=== PATIENT | female | born 1955 | race Caucasian/White ===

== ENCOUNTER → 2017-12-31 11:47 | Outpatient (CLI) | payer OTHER, SELFPAY ==
--- NOTE | 2017-12-31 | DI.MG.S_ITS ---
BILATERAL DIGITAL SCREENING MAMMOGRAM 3D/2D WITH CAD: 12/31/2017 CLINICAL: Routine screening. Comparison is made to exams dated: 10/27/2016 mammogram, 10/23/2015 mammogram, and 08/14/2014 mammogram - [facility]. The tissue of both breasts is heterogeneously dense. This may lower the sensitivity of mammography. Current study was also evaluated with a Computer Aided Detection (CAD) system. No significant masses, calcifications, or other findings are seen in either breast. There has been no significant interval change. IMPRESSION: NEGATIVE There is no mammographic evidence of malignancy. A 1 year screening mammogram is recommended. This exam was interpreted at Station ID: [id number]. NOTE: For mammograms, a report in lay terms will be sent to the patient. Approximately 15% of breast malignancies will not be visualized mammographically. In the management of a palpable breast mass, a negative mammogram must not discourage biopsy of a clinically suspicious lesion. Electronically Signed By: Ankur hutton/lio:12/31/2017 16:04:19 letter sent: Normal Exam ACR BI-RADS Category 1: Negative 3341F
== END ==
PROVIDERS: Family Provider Family Medicine; PCP Family Medicine; Visit Provider Family Medicine
DX: Z12.31 Encounter for screening mammogram for malignant neoplasm of breast (principal)
CPT/HCPCS: 77063; 77067

== ENCOUNTER → 2019-02-20 13:13 | Outpatient (CLI) | payer OTHER, SELFPAY ==
--- NOTE | 2019-02-20 | DI.RAD.S_ITS ---
PROCEDURE: XR CHEST 2V INDICATIONS: SHORTNESS OF BREATH TECHNIQUE: 2 views of the chest were acquired. COMPARISON: [facility], , CHEST 2 VIEW, 02/15/2017, 15:54. FINDINGS: Surgical changes and devices: None. Lungs and pleura: Lungs are clear. No pleural effusions or pneumothorax. Mediastinum: Mediastinal contours are normal. Heart size is normal. Bones and chest wall: No suspicious bony abnormalities. Soft tissues appear unremarkable. Mild multilevel degenerative changes of the thoracic spine. IMPRESSION: No acute cardiopulmonary disease. Dictated by: Garth Wallis M.D. on 02/20/2019 at 15:41 Approved by: Garth Wallis M.D. on 02/20/2019 at 15:52
== END ==
PROVIDERS: PCP Family Medicine; Visit Provider Family Medicine
DX: R06.02 Shortness of breath (principal)
CPT/HCPCS: 71046

== ENCOUNTER → 2019-02-28 11:49 | Outpatient (CLI) | payer OTHER, SELFPAY ==
--- NOTE | 2019-02-28 | DI.MG.S_ITS ---
BILATERAL DIGITAL SCREENING MAMMOGRAM 3D/2D WITH CAD: 02/28/2019 CLINICAL: Routine screening. Comparison is made to exams dated: 12/31/2017 mammogram, 10/27/2016 mammogram, and 10/23/2015 mammogram - [facility]. The tissue of both breasts is heterogeneously dense. This may lower the sensitivity of mammography. Current study was also evaluated with a Computer Aided Detection (CAD) system. There are benign post operative findings in the left breast. No significant masses, calcifications, or other findings are seen in either breast. There has been no significant interval change. IMPRESSION: There is no mammographic evidence of malignancy. A 1 year screening mammogram is recommended. This exam was interpreted at Station ID: [id number]. NOTE: For mammograms, a report in lay terms will be sent to the patient. Approximately 15% of breast malignancies will not be visualized mammographically. In the management of a palpable breast mass, a negative mammogram must not discourage biopsy of a clinically suspicious lesion. Electronically Signed By: Josy ross/lio:02/28/2019 13:42:56 letter sent: Normal Exam ACR BI-RADS Category 2: Benign Finding(s) 3342F
== END ==
PROVIDERS: PCP Family Medicine; Visit Provider Family Medicine
DX: Z12.31 Encounter for screening mammogram for malignant neoplasm of breast (principal); Z78.0 Asymptomatic menopausal state; Z82.62 Family history of osteoporosis
CPT/HCPCS: 77063; 77067; 77080

== ENCOUNTER → 2020-01-19 16:28 | Outpatient (CLI) | payer OTHER, SELFPAY ==
--- NOTE | 2020-01-19 16:30 | DI.RAD.S_ITS ---
PROCEDURE: XR CLAVICLE LT INDICATIONS: LEFT CLAVICLE ENLARGEMENT TECHNIQUE: 2 views of the clavicle were acquired. COMPARISON: None. FINDINGS: Bones: No acute fracture or dislocation. There is moderate narrowing at the acromioclavicular joint. No suspicious bony lesions. Soft tissues: No suspicious soft tissue calcifications. IMPRESSION: Moderate acromioclavicular joint osteoarthritis. No suspicious bony lesions. Dictated by: Josy Maher M.D. on 01/19/2020 at 17:03 Approved by: Josy Maher M.D. on 01/19/2020 at 17:04
== END ==
PROVIDERS: PCP Family Medicine; Referring Provider Family Medicine; Visit Provider Family Medicine
DX: M89.312 Hypertrophy of bone, left shoulder (principal); M19.012 Primary osteoarthritis, left shoulder
CPT/HCPCS: 73000

== ENCOUNTER → 2021-02-19 16:55 | Outpatient (CLI) | payer MEDICARE, OTHER, SELFPAY ==
--- NOTE | 2021-02-19 16:59 | DI.MG.S_ITS ---
BILATERAL DIGITAL SCREENING MAMMOGRAM 3D/2D WITH CAD: 02/19/2021 CLINICAL: Routine screening. Comparison is made to exams dated: 02/28/2019 mammogram, 12/31/2017 mammogram, and 10/27/2016 mammogram - [facility]. The tissue of both breasts is heterogeneously dense. This may lower the sensitivity of mammography. Current study was also evaluated with a Computer Aided Detection (CAD) system. There are benign calcifications in both breasts. There also are benign post operative findings in the left breast. No significant masses, calcifications, or other findings are seen in either breast. There has been no significant interval change. IMPRESSION: BENIGN There is no mammographic evidence of malignancy. A 1 year screening mammogram is recommended. This exam was interpreted at Station ID: [id number]. NOTE: For mammograms, a report in lay terms will be sent to the patient. Approximately 15% of breast malignancies will not be visualized mammographically. In the management of a palpable breast mass, a negative mammogram must not discourage biopsy of a clinically suspicious lesion. Electronically Signed By: Zi Franco acr/penrad:02/19/2021 19:16:11 letter sent: Normal Exam ACR BI-RADS Category 2: Benign Finding(s) 3342F
== END ==
PROVIDERS: PCP Family Medicine; Referring Provider Family Medicine; Visit Provider Family Medicine
DX: Z12.31 Encounter for screening mammogram for malignant neoplasm of breast (principal)
CPT/HCPCS: 77063; 77067

== ENCOUNTER → 2021-03-07 10:48 | Outpatient (CLI) | payer MEDICARE, OTHER, SELFPAY ==
--- NOTE | 2021-03-07 | DI.MRI.S_ITS ---
PROCEDURE: MR HEAD/BRAIN WO/W CON INDICATIONS: Migraine, colloid cyst TECHNIQUE: Noncontrast axial T1 spin echo, axial T2 fast spin echo, sagittal and axial FLAIR, coronal T2 fast spin echo, axial gradient echo, axial diffusion and ADC through the brain. After the administration of contrast, axial and coronal T1 spin echo with fat saturation through the brain. COMPARISON: [facility], MR, BRAIN WITHOUT CONTRAST, 03/01/2015, 8:22. [facility], MR, BRAIN WITH AND WITHOUT CONTRAS, 09/07/2005, 16:39. [facility], MR, BRAIN WITH AND WITHOUT CONTRAS, 10/13/2007, 13:32. [facility], MR, BRAIN WITH AND WITHOUT CONTRAS, 02/05/2009, 11:27. FINDINGS: Image quality: Excellent. CSF spaces: Basal cisterns are patent. No extra-axial fluid collections. Ventricles are normal in size and shape. Brain: Along the left medial aspect of the cerebellum, just inferior to the 4th ventricle, there is an ovoid lesion that measures 9 x 5 mm in greatest axial dimension, which demonstrates increased signal on precontrast T1 weighted images, as on series 6, image 7. This is smaller in size than that which is seen in 2006. There is a similar lesion seen more medially and inferiorly, as on series 6, image 6 measuring 4 x 4 mm, which is unchanged. These lesions are not believed to enhance. No midline shift. No intracranial bleeds or masses. No abnormal intracranial enhancement. There is cerebral volume loss for age. There is periventricular white matter chronic small vessel ischemic change. The brainstem appears normal. Diffusion-weighted images demonstrate no acute ischemic insults. No chronic ischemic insults. Normal intravascular flow voids are present. Skull and face: Calvarial marrow is normal in signal. Orbits appear normal. Sinuses: Sinuses and mastoids appear clear. IMPRESSION: There are 2 nonenhancing lesions seen near the 4th ventricle, with the larger of these lesions clearly smaller than in 2006. These are considered to be benign. No imaging explanation found for the patient's presenting history of headache. No masses or abnormal enhancement can be seen. Dictated by: Ajit Bhakta M.D. on 03/07/2021 at 10:44 Approved by: Ajit Bhakta M.D. on 03/07/2021 at 10:53
== END ==
PROVIDERS: PCP Family Medicine; Referring Provider Family Medicine; Visit Provider Family Medicine
DX: G93.0 Cerebral cysts (principal); G43.909 Migraine, unspecified, not intractable, without status migrainosus
CPT/HCPCS: 70553

== ENCOUNTER → 2021-10-10 13:20 | Outpatient (CLI) | payer MEDICARE, OTHER, SELFPAY ==
--- NOTE | 2021-10-10 | DI.RAD.S_ITS ---
PROCEDURE: XR CHEST 2V INDICATIONS: CHRONIC COUGH TECHNIQUE: 2 views of the chest were acquired. COMPARISON: [facility], CR, XR CHEST 2V, 02/20/2019, 13:14. FINDINGS: Surgical changes and devices: None. Lungs and pleura: Lungs are clear. No pleural effusions or pneumothorax. Eventration of the hemidiaphragms. Mediastinum: Mediastinal contours are normal. Heart size is normal. Bones and chest wall: No suspicious bony abnormalities. Soft tissues appear unremarkable. IMPRESSION: No acute cardiopulmonary disease process. Dictated by: Summer Christianson MD, PhD on 10/10/2021 at 16:26 Approved by: Summer Christianson MD, PhD on 10/10/2021 at 16:27
== END ==
PROVIDERS: PCP Family Medicine; Referring Provider Family Medicine; Visit Provider Family Medicine
DX: R05.3 Chronic cough (principal)
CPT/HCPCS: 71046

== ENCOUNTER → 2022-02-27 15:14 | Outpatient (CLI) | payer MEDICARE, OTHER, SELFPAY ==
--- NOTE | 2022-02-27 15:15 | DI.MG.S_ITS ---
BILATERAL DIGITAL SCREENING MAMMOGRAM 3D/2D WITH CAD: 02/27/2022 CLINICAL: Routine screening. Comparison is made to exams dated: 02/19/2021 mammogram, 02/28/2019 mammogram, and 12/31/2017 mammogram - [facility]. Both breasts are heterogeneously dense, which may obscure small masses (category c / 51-75% glandular tissue). Current study was also evaluated with a Computer Aided Detection (CAD) system. There are benign calcifications in both breasts. There also are benign post operative findings in the left breast. No significant masses, calcifications, or other findings are seen in either breast. There has been no significant interval change. IMPRESSION: BENIGN There is no mammographic evidence of malignancy. A 1 year screening mammogram is recommended. Based on the Tyrer Cuzick model (a risk assessment model) the patient's lifetime risk is 11.0% and her 10 year risk is 5.6%. According to the ACR, ACS, and NCCN guidelines, an annual breast MRI exam along with mammogram is recommended if the patient's lifetime risk is 20% or greater. This exam was interpreted at Station ID: [id number]. NOTE: For mammograms, a report in lay terms will be sent to the patient. Approximately 15% of breast malignancies will not be visualized mammographically. In the management of a palpable breast mass, a negative mammogram must not discourage biopsy of a clinically suspicious lesion. Electronically Signed By: Eulalio Capellan M.D., jr/lio:03/02/2022 10:39:09 letter sent: Normal Exam ACR BI-RADS Category 2: Benign Finding(s) 3342F
== END ==
PROVIDERS: PCP Family Medicine; Referring Provider Family Medicine; Visit Provider Family Medicine
DX: Z12.31 Encounter for screening mammogram for malignant neoplasm of breast (principal)
CPT/HCPCS: 77063; 77067

== ENCOUNTER → 2022-11-27 13:30 | Outpatient (CLI) | payer MEDICARE, OTHER, SELFPAY ==
--- NOTE | 2022-11-27 | DI.RAD.S_ITS ---
1PROCEDURE: XR CHEST 2V INDICATIONS: chronic cough TECHNIQUE: 2 views of the chest were acquired. COMPARISON: [facility], CR, XR CHEST 2V, 10/10/2021, 13:36. [facility], CR, XR CHEST 2V, 02/20/2019, 13:14. FINDINGS: Surgical changes and devices: None. Lungs and pleura: No airspace consolidation or pleural effusion. Mediastinum: Mediastinal contours are normal. Heart size is normal. Bones and chest wall: No suspicious bony abnormalities. Soft tissues appear unremarkable. IMPRESSION: No acute radiographic abnormality. Dictated by: Eros Torres M.D. on 11/27/2022 at 14:51 Approved by: Eros Torres M.D. on 11/27/2022 at 14:52
== END ==
PROVIDERS: PCP Family Medicine; Referring Provider Family Medicine; Visit Provider Family Medicine
DX: R05.3 Chronic cough (principal)
CPT/HCPCS: 71046

== ENCOUNTER → 2022-12-28 09:25 | Outpatient (CLI) | payer MEDICARE, OTHER, SELFPAY ==
--- NOTE | 2022-12-28 09:28 | DI.CT.S_ITS ---
PROCEDURE: CT CHEST W CON INDICATIONS: CHRONIC COUGH/DESIR TECHNIQUE: After the administration of intravenous contrast, 5 mm thick sections acquired from the pulmonary apices to the posterior costophrenic angles. 1 mm axial lung, 5 mm thick coronal and sagittal reformats and 7 mm axial MIP were acquired. For radiation dose reduction, the following was used: automated exposure control, adjustment of mA and/or kV according to patient size. COMPARISON: None. FINDINGS: Image quality: Excellent. Lungs and pleura: Central airways are patent. Peripheral airways demonstrate mild diffuse bronchial wall thickening without bronchiectasis or airway occlusion. Trace atelectatic changes peripherally in the right middle lobe and lower lingula. Minor subpleural tree-in-bud nodularity seen laterally in the left upper lobe at a mid lung level. There is biapical pleural plaquing. A 7 mm nodules present in the medial right lung apex. Pleural and subpleural calcified nodules occasionally in the both lungs. No dense consolidations, ground-glass opacities, or pleural effusions. Mediastinum: Heart size is normal. No pericardial effusion. No mediastinal or hilar adenopathy by size criteria. Nonenlarged calcified right hilar nodule. Thoracic aorta and central pulmonary arteries are normal in size. Esophagus is normal in caliber. Tiny hiatal hernia. Bones and chest wall: No suspicious bony lesions. No vertebral body compression fractures. No axillary or supraclavicular adenopathy by size criteria. Thyroid gland has a normal CT appearance . Abdomen: 1.3 cm left lobe hepatic cyst. Visualized upper abdominal solid organs appear otherwise normal. Upper abdominal bowel loops are normal in caliber. IMPRESSION: 1. Mild diffuse bilateral bronchial wall thickening suggesting acute or chronic bronchitis, reactive airways disease. There is no bronchiectasis. 2. Scattered calcified bilateral lung nodules consistent with granulomas. 3. 7 mm noncalcified right apical lung nodule. Follow-up in six months recommended. Dictated by: Marcy Ha M.D. on 12/28/2022 at 13:09 Approved by: Marcy Ha M.D. on 12/28/2022 at 13:18
[2022-12-28 09:53] LABS: Estimated Glomerular Filt Rate > 60 mL/min (>60)
== END ==
PROVIDERS: Radiology Diagnostic Radiology; PCP Family Medicine; Referring Provider Family Medicine; Visit Provider Family Medicine
DX: R05.3 Chronic cough (principal); R91.8 Other nonspecific abnormal finding of lung field; R06.09 Other forms of dyspnea; B34.9 Viral infection, unspecified
CPT/HCPCS: 36415; 71260; 82565; Q9967

== ENCOUNTER 2023-01-26 08:16 | Day surgery (SDC) | payer MEDICARE, OTHER, SELFPAY ==
[2023-01-26 08:25] VITALS: BP 113/68; PULSE 74; RESP 16; TEMP 36.5; O2SAT 96; BMI 25.4
[2023-01-26] MEDS: LACTATED RINGERS 1,000 ML 200 ML IV (08:44)
--- NOTE | 2023-01-26 09:32 | PM.HP.1 ---
History of Present Illness History of Present Illness Date Patient Seen: 01/26/23 Time Patient Seen: 09:32 Chief complaint: SD Narrative: 66-year-old woman here for diagnostic colonoscopy after recent rectal bleeding. Please refer to H&P 12/04/22 for further detail, no interval changes in health. [facility] Medical History Asthma Migraine Surgical History H/O breast biopsy H/O section Social History marital status: unmarried,single household members: none lives independently: Yes occupational status: previously employed Smoking Status: Never smoker alcohol intake: current substance use type: does not use Meds Home Medications and Allergies Home Medications Medication Instructions Recorded Confirmed Type cetirizine 10 mg tablet (Zyrtec) 10 mg PO DAILY PRN Allergy Symptoms 12/04/22 01/26/23 History citalopram 10 mg tablet (Celexa) 10 mg PO DAILY 12/04/22 01/26/23 History citalopram 20 mg tablet (Celexa) 20 mg PO DAILY 12/04/22 01/26/23 History magnesium oxide 400 mg (241.3 mg 400 mg PO DAILY 12/04/22 01/26/23 History magnesium) tablet (MagOx) multivitamin 1 tab PO DAILY 12/04/22 01/26/23 History sodium sul 1.479 gram-potas ch See Rx Instructions PO PER PKG DIR 12/04/22 01/26/23 Rx 0.188 gram-magnes sul 0.225 gram #24 tabs tablet (Sutab) propranolol 60 mg capsule,24 60 mg PO DAILY 01/26/23 01/26/23 History hr,extended release Allergies Allergy/AdvReac Type Severity Reaction Status Date / Time No Known Drug Allergies Allergy Unknown Unverified 12/04/22 10:23 [NO KNOWN DRUG ALLERGIES] Exam Vital Signs (past 8 hours): - 01/26/23 08:25 Temperature 97.7 F Pulse Rate 74 Respiratory Rate 16 Blood Pressure 113/68 Pulse Oximetry 96 Oxygen Delivery Method Room Air Oxygen Delivery Method Room Air Narrative Exam Narrative: General adult woman alert oriented no acute distress Abdomen soft nontender nondistended Assessment & Plan Assessment and plan (1) Rectal bleeding: Status: Acute Assessment & Plan narrative: 67-year-old woman with intermittent rectal bleeding here for diagnostic colonoscopy. Technical details were discussed. Risks, benefits, alternatives explained. Risks including but not limited to myocardial infarction, aspiration, bleeding, pain, missed lesion, incomplete examination, need for further radiographic studies, colonic perforation, and need for major abdominal surgery were discussed. All questions were answered to their satisfaction, and they are in agreement with this plan.
[2023-01-26 10:04] VITALS: BP 87/54; PULSE 70; RESP 16; TEMP 36.2; O2SAT 98
[2023-01-26 10:09] VITALS: BP 93/58; PULSE 70; RESP 21; O2SAT 98
--- NOTE | 2023-01-26 10:12 | PM.OP.COLON ---
Operative Date/Time/Diagnoses Date of procedure: 01/26/23 Time of procedure: 10:13 Pre-op diagnosis: Rectal bleeding Post-op diagnosis: other (Internal hemorrhoid) Procedure & Clinicians Study performed: Colonoscopy Same procedure as scheduled: Yes Indications: 67-year-old woman with recent rectal bleeding here for diagnostic colonoscopy Surgeon: Moses Tilley Procedure Notes Procedure in detail: The history and physical was performed/updated and the patient is ASA class is 2. The procedure was discussed in detail with the patient. Potential risks complications including infection, bleeding, missed diagnosis, perforation, need for surgery, and were explained. Their questions were answered and informed consent was obtained. Patient was brought to the procedure room and placed standard monitoring equipment. The patient's vital signs were monitored continuously throughout the entire procedure. Prior to starting time-out was performed. The patient was placed in the left lateral recumbent position. Procedural sedation was administered by anesthesia. Examination began with a thorough inspection of the perianal area there was no evidence of fissures, fistulae, external hemorrhoids or cutaneous malignancy. The colonoscopy scope was then placed into the anal canal and was advanced to the cecum, which was identified by the ileocecal valve, the appendiceal orifice and the confluence of the taenia. The scope was then slowly withdrawn examining colon thoroughly in all directions, irrigating it of any residual stool. No masses or polyps Rectal-grade 1 internal hemorrhoids no active bleeding The patient tolerated the procedure well. They will be discharged once criteria are met. The prep was of good/excellent quality. The withdrawl time was 6 minutes. Specimen(s): none sent Impression: Internal hemorrhoids Post-procedure Recommendations: Colonoscopy in 10 years and High fiber diet Disposition: same day surgery
[2023-01-26 10:15] VITALS: BP 94/56; PULSE 67; RESP 25; O2SAT 99
[2023-01-26 10:21] VITALS: BP 90/56; PULSE 65; RESP 24; O2SAT 99
== END 2023-01-26 10:30 | disposition home or self-care (01) ==
PROVIDERS: PCP Family Medicine; Referring Provider Surgery; Visit Provider Surgery
PROC: 0DJD8ZZ Inspection of Lower Intestinal Tract, Via Natural or Artificial Opening Endoscopic (ICD-10-PCS; CPT 45378; principal; 2023-01-26 09:30)
DX: K64.0 First degree hemorrhoids (principal)
CPT/HCPCS: 45378; J2704

== ENCOUNTER → 2023-02-09 12:37 | Outpatient (CLI) | payer MEDICARE, OTHER, SELFPAY | PROVIDERS: PCP Family Medicine; Referring Provider Internal Medicine Critical Care Medicine; Visit Provider Internal Medicine Critical Care Medicine | DX: J98.01 Acute bronchospasm (principal); R91.8 Other nonspecific abnormal finding of lung field | CPT/HCPCS: 94060; 94726; 94729; 99214 ==

== ENCOUNTER → 2023-03-17 11:30 | Outpatient (CLI) | payer MEDICARE, OTHER, SELFPAY ==
--- NOTE | 2023-03-17 | DI.MG.S_ITS ---
BILATERAL DIGITAL SCREENING MAMMOGRAM 3D/2D WITH CAD: 03/17/2023 CLINICAL: Routine screening. Comparison is made to exams dated: 02/27/2022 mammogram, 02/19/2021 mammogram, 02/28/2019 mammogram, and 12/31/2017 mammogram - [facility]. Both breasts are heterogeneously dense, which may obscure small masses (category c / 51-75% glandular tissue). Current study was also evaluated with a Computer Aided Detection (CAD) system. There are benign diffuse calcifications in both breasts. There also are benign post operative findings in both breasts. No significant masses, calcifications, or other findings are seen in either breast. There has been no significant interval change. IMPRESSION: BENIGN There is no mammographic evidence of malignancy. A 1 year screening mammogram is recommended. Based on the Tyrer Cuzick model (a risk assessment model) the patient's lifetime risk is 10.4% and her 10 year risk is 5.5%. According to the ACR, ACS, and NCCN guidelines, an annual breast MRI exam along with mammogram is recommended if the patient's lifetime risk is 20% or greater. This exam was interpreted at Station ID: [id number]. NOTE: For mammograms, a report in lay terms will be sent to the patient. Approximately 15% of breast malignancies will not be visualized mammographically. In the management of a palpable breast mass, a negative mammogram must not discourage biopsy of a clinically suspicious lesion. Electronically Signed By: Eliel kohli/lio:03/17/2023 13:44:34 letter sent: Normal Exam ACR BI-RADS Category 2: Benign Finding(s) 3342F
== END ==
PROVIDERS: PCP Family Medicine; Referring Provider Family Medicine; Visit Provider Family Medicine
DX: Z12.31 Encounter for screening mammogram for malignant neoplasm of breast (principal)
CPT/HCPCS: 77063; 77067

== ENCOUNTER 2023-03-21 19:59 | Emergency (ER) | payer MEDICARE, OTHER, SELFPAY ==
[2023-03-21] VITALS (13 sets, daily range): BP systolic 108–140; BP diastolic 53–87; PULSE 102–120; RESP 12–26; TEMP 37.1; O2SAT 92–98; BMI 25.3
--- NOTE | 2023-03-21 20:16 | ED_ITS ---
HPI - General Adult General Chief complaint: Upper Respiratory Symptoms Stated complaint: sinus infection/trouble breathing x7 days Time Seen by Provider: 03/21/23 20:16 Source: patient Mode of arrival: Ambulatory History of Present Illness HPI narrative: 67-year-old woman with a history of asthma and recently diagnosed sinusitis presents with complaints of being sick for the last week. She began having a sore throat 8 days ago than short of breath with a cough. Progressing to hoarseness increasing dyspnea, tachycardia, fevers and myalgias. Symptoms were getting worse and she saw her first aid instructor on March 19 who thought that this could be sinusitis recommended saline washes and if symptoms were worsening to start Augmentin. She has been regularly using a Netti pot and not finding that she is getting much nasal debris out. She does feel that she has sputum but is unable to cough that out. As symptoms were worsening she did start the Augmentin with a single dose taken this morning. She is continued to worsen over the course of the day and comes in for further evaluation. She does not report abdominal pain, vomiting or diarrhea. No orthopnea or lower extremity edema. Related Data Home Medications Medication Instructions Recorded Confirmed cetirizine 10 mg tablet (Zyrtec) 10 mg PO DAILY PRN Allergy Symptoms 12/04/22 03/19/23 citalopram 10 mg tablet (Celexa) 10 mg PO DAILY 12/04/22 03/19/23 citalopram 20 mg tablet (Celexa) 20 mg PO DAILY 12/04/22 03/19/23 magnesium oxide 400 mg (241.3 mg 400 mg PO DAILY 12/04/22 03/19/23 magnesium) tablet (MagOx) multivitamin 1 tab PO DAILY 12/04/22 03/19/23 propranolol 60 mg capsule,24 60 mg PO DAILY 01/26/23 03/19/23 hr,extended release albuterol sulfate 90 mcg/actuation 2 inh inhalation Q4-6H PRN 02/09/23 03/19/23 breath activated powder inhaler,sensor Previous Rx's Medication Instructions Recorded inhalational spacing device #1 ea 02/09/23 (Aerochamber MV spacer) fluticasone 250 mcg-salmeterol 50 1 inh inhalation BID #1 ea 02/23/23 mcg/dose blistr powdr for inhalation (Advair Diskus) amoxicillin 500 mg-potassium 1 tab PO BID #14 tabs 03/19/23 clavulanate 125 mg tablet (Augmentin) azithromycin 250 mg tablet 250 mg PO DAILY 4 days #4 tabs 03/21/23 prednisone 20 mg tablet 20 mg PO DAILY #5 tabs 03/21/23 Allergies Allergy/AdvReac Type Severity Reaction Status Date / Time No Known Drug Allergies Allergy Unknown Unverified 03/19/23 14:45 [NO KNOWN DRUG ALLERGIES] Review of Systems Review of Systems Narrative: Pertinent positive and negative findings as per HPI Patient History Medical History Migraine Asthma Surgical History H/O breast biopsy H/O section Social History marital status: unmarried,single household members: none lives independently: Yes occupational status: previously employed Smoking Status: Never smoker alcohol intake: current substance use type: does not use Smoking Status: Never smoker alcohol intake frequency: a few times a month Substance Use Type: does not use Exam Initial Vital Signs Initial Vital Signs: Vital Signs Temperature 98.8 F 03/21/23 20:02 Pulse Rate 120 H 03/21/23 20:02 Respiratory Rate 16 03/21/23 20:02 Blood Pressure 140/72 03/21/23 20:02 Pulse Oximetry 94 03/21/23 20:02 Oxygen Delivery Method Room Air 03/21/23 20:02 General: Ill-appearing but not toxic. Able to give a complete and coherent history. Well-nourished well-developed HEENT: Hoarse, Moist mucous membranes, normal sclera with reactive pupils, Neck: No JVD, supple Respiratory: Lungs with rhonchi through upper and lower lobes on the right side and scattered wheeze in all lung chappell Cardiac: Tachycardic, regular no murmurs no bruits Abdomen: Soft, nontender, good bowel tones, no flank pain Skin: Warm and dry, no rashes Neurologic: Grossly neurologically intact with no obvious asymmetries or abnormalities Extremities: No trauma, well perfused Psych: Cooperative, appropriate insight and affect Course Orders Ordered: ED Orders 03/21/23 20:30 XR chest 1V Stat EKG-12 Lead Stat 03/21/23 20:47 Complete Blood Count AUTO DIFF Stat Comprehensive Metabolic Panel Stat D Dimer Stat Lactate (Lactic Acid) Stat Magnesium Stat NT-proBNP (BNP-Adult 18+) Stat Procalcitonin Stat Respiratory Panel (Film Array) Stat Troponin I Stat 03/21/23 20:50 Blood Culture Stat Discontinued Medications Acetaminophen (Acetaminophen 325 Mg Tablet) 325 mg PO NOW ONE Stop: 03/21/23 21:43 Last Admin: 03/21/23 21:56 Dose: 325 mg Documented By: MARICHUY Albuterol (Albuterol 2.5 Mg/3 Ml Neb (Adult)) 2.5 mg INH NOW ONE Stop: 03/21/23 20:30 Last Admin: 03/21/23 20:45 Dose: 2.5 mg Documented By: SANTOS Sodium Chloride (Normal Saline 0.9%) 1,000 mls @ 1,000 mls/hr IV BOLUS ONE Stop: 03/21/23 21:28 Last Infusion: 03/21/23 21:44 Dose: Infused Documented By: Admin: 03/21/23 20:44 Dose: 1,000 mls/hr Documented By: JOSÉ Ceftriaxone Sodium 2,000 mg/ (Sodium Chloride) 100 mls @ 200 mls/hr IV NOW ONE Stop: 03/21/23 20:32 Last Infusion: 03/21/23 21:24 Dose: Infused Documented By: Admin: 03/21/23 20:54 Dose: 200 mls/hr Documented By: MARICHUY Azithromycin 500 mg/ Dextrose 250 mls @ 250 mls/hr IV NOW ONE Stop: 03/21/23 20:32 Last Admin: 03/21/23 21:42 Dose: 250 mls/hr Documented By: MARICHUY Ibuprofen (Ibuprofen 400 Mg Tablet) 400 mg PO NOW ONE Stop: 03/21/23 21:43 Last Admin: 03/21/23 21:57 Dose: 400 mg Documented By: MARICHUY Vital Signs Vital signs: Vital Signs - 8 hr 03/21/23 20:02 03/21/23 20:27 03/21/23 20:30 Temperature 98.8 F Pulse Rate 120 H 109 H Respiratory Rate 16 26 H Blood Pressure 140/72 138/87 Pulse Oximetry 94 Oxygen Delivery Method Room Air 03/21/23 20:30 03/21/23 20:46 03/21/23 21:00 Temperature Pulse Rate 111 H 102 H 119 H Respiratory Rate 22 18 24 Blood Pressure Pulse Oximetry 97 95 98 Oxygen Delivery Method Room Air 03/21/23 21:30 03/21/23 21:37 03/21/23 21:37 Temperature Pulse Rate 113 H 117 H Respiratory Rate 26 H 20 Blood Pressure 126/57 L Pulse Oximetry 94 93 Oxygen Delivery Method 03/21/23 22:00 03/21/23 22:00 Temperature Pulse Rate 117 H Respiratory Rate 22 Blood Pressure 119/55 L Pulse Oximetry 94 Oxygen Delivery Method Medical Decision Making Lab Data 03/21/23 20:47 03/21/23 20:47 Labs: Lab Results 03/21/23 Range/Units 20:47 WBC 10.1 (4.5-11.0) X10^3/uL RBC 4.11 (4.0-5.2) X10^6/uL Hgb 12.2 (12.0-16.0) g/dL Hct 36.3 (36-46) % MCV 88.5 (80-100) fL MCH 29.7 (26-34) PG MCHC 33.6 (30-36) % RDW 14.0 (11.6-14.8) % Plt Count 272 (150-400) X10^3/uL Neut % (Auto) 87.2 H (50-75) % Lymph % (Auto) 6.3 L (25-40) % [place] % (Auto) 5.9 (3-14) % Eos % (Auto) 0.5 L (2-4) % Baso % (Auto) 0.1 (0-2) % Neut # (Auto) 8800 H (6522-7455) /uL Lymph # (Auto) 600 L (6482-9476) /uL [place] # (Auto) 600 (0-900) /uL Eos # (Auto) 0 (0-450) /uL Baso # (Auto) 0 (0-100) /uL D-Dimer 609 H (<500) ng/ml Sodium 134 L (137-145) mmol/L Potassium 4.3 (3.4-5.1) mmol/L Chloride 99 (98-107) mmol/L Carbon Dioxide 26 (22-32) mmol/L BUN 8 (7-17) mg/dL Creatinine 0.93 (0.52-1.04) mg/dL Estimated GFR > 60 (>60) mL/min BUN/Creatinine Ratio 8.6 (6-22) Glucose 123 H (80-110) mg/dL Lactate 1.2 (0.7-2.1) mmol/L Calcium 9.4 (8.4-10.2) mg/dL Magnesium 1.9 (1.6-2.3) mg/dL Total Bilirubin 0.5 (0.2-1.3) mg/dL AST 53 H (14-36) IU/L ALT 69 H (<35) IU/L Alkaline Phosphatase 97 (38-126) U/L Troponin I < 0.012 (0.01-0.034) ng/mL NT-Pro-B Natriuret Pep 256 H (<125) pg/mL Total Protein 7.7 (6.3-8.2) g/dL Albumin 4.2 (3.5-5.0) g/dL Globulin 3.5 (1.7-4.1) g/dL Albumin/Globulin Ratio 1.2 (1.0-2.8) Procalcitonin 0.28 (<0.5) ng/mL Chlamy pneumoniae PCR Not detected (Not Detect) Adenovirus (PCR) Not detected (Not Detect) B.parapertussis DNA PCR Not detected (Not Detecte) Coronavirus OC43 (PCR) Not detected (Not Detect) Coronavirus HKU1 (PCR) Not detected (Not Detect) Coronavirus 229E (PCR) Not detected (Not Detect) SARS-CoV-2 (PCR) Not detected (Not Detecte) Coronavirus NL63 (PCR) Not detected (Not Detect) Human Metapneumovir PCR Not detected (Not Detect) Influenza Type A (PCR) Not detected (Not Detect) Influenza Type B (PCR) Not detected (Not Detect) M. pneumoniae (PCR) Not detected (Not Detect) Parainfluenza 1 (PCR) Not detected (Not Detect) Parainfluenza 2 (PCR) Not detected (Not Detect) Parainfluenza 3 (PCR) Not detected (Not Detect) Parainfluenza 4 (PCR) Not detected (Not Detect) RSV (PCR) Not detected (Not Detect) Entero/Rhino (PCR) Detected (Not Detect) MDM Narrative Medical decision making narrative: CC: Fever, myalgias, cough symptoms worsening over the last week Complicating co-morbidities: Asthma Data collected from: patient, Medical records reviewed: Pulmonary notes from March 19 with diagnosis of sinusitis, recommendation for sinus rinses and his symptoms not improving then starting Augmentin. Moderate persistent asthma continue with [place] Differential considered: Right-sided pneumonia, acute asthma exacerbation, viral syndrome, sinusitis, sepsis Exam documented above, pertinent findings include: She is hoarse and does have symptoms of viral upper respiratory infection however with symptoms getting significantly worse and rhonchi appreciated through entire right lung chappell fever and significant tachycardia I am concerned that she is developing a post viral pneumonia Lab Test results independently reviewed as above. Pertinent findings: CBC has no significant leukocytosis with a white count at 10.1 however there is moderate left shift with 87.2% neutrophils. No anemia Chemistries show minimally elevated AST and ALT at 53 and 69 comparison is from 2017. Remainder chemistries are unremarkable BNP is minimally elevated at 256 Troponin is undetectable Procalcitonin is not elevated, currently at 0.28 Respiratory panel indicates entero rhinovirus Lactic acid is 1.2 Independently reviewed EKG sinus tachycardia at a rate of 108 with normal intervals, normal axis and no acute ischemic changes Imaging studies independently reviewed: Chest x-ray shows bilateral interstitial pulmonary opacities possible viral or atypical infection. Concerned with a small infiltrate appreciated on the right which clinically fits with the increased rhonchi Treatments: Albuterol treatment, a L of fluid, ceftriaxone and azithromycin parenterally, parenteral Solu-Medrol oral ibuprofen and Tylenol to help with sinus pressure headache Re-evaluations: 10pm patient is re-evaluated. She remains slightly tachycardic she does have a frontal headache that she feels may be a migraine. The fluids have definitely helped with energy overall. Reviewed findings with her consistent with rhino virus which likely caused the loss of voice and all of her symptoms over the 1st week as well as a developing bacterial right-sided pneumonia. As she has already started Augmentin I think this is a reasonable antibiotic to continue I am going to add to this a course of azithromycin to cover atypical pneumonias as well. CURB-65 Score for Pneumonia Severity RESULT SUMMARY: 1 points Low risk group: 2.7% 30-day mortality. Consider outpatient treatment. Discussion: 67-year-old woman testing positive for entero rhinovirus which likely explains her symptoms from a week ago, with increased fevers clearly worsening she is developing a right-sided post viral bacterial pneumonia. She is already been started on Augmentin and will have her continue this and will add azithromycin to cover atypicals. For the wheezing will also have her complete 5 days of steroids. She is clinically looking and feeling much improved at this point. There is no evidence of sepsis, impending respiratory failure or reason for further evaluation or hospitalization. Will suggest that she continue with the sinus irrigation for the frontal sinus pain and pressure. Questions are answered and she is safe for discharge home Discharge Plan Departure Patient Disposition: Home Clinical Impression: Bacterial pneumonia, Rhinovirus infection Instructions: DI for Pneumonia -- Adult Activity Restrictions/Additional Instructions: Thank you for coming in today I do think that your symptoms started out as a viral upper respiratory infection caused by rhino virus. As you have worsened it does appear that you have developed a bacterial pneumonia in the right side of your lungs. You responded nicely to fluids and antibiotics as well as a nebulizer treatment in the emergency department. At this time there is no sign of sepsis, impending respiratory failure or alternate explanation that would require hospitalization or further imaging today I do want you to complete the course of Augmentin that you have already started and to this I am going to add for additional days of azithromycin(you had the 1st dose IV in the emergency department). I am also going to give you a short course of oral steroids to help with the wheezing. Prescriptions have been electronically transmitted to [facility] in [place] I would recommend that you contact your primary care physician for follow-up with in 2-3 days to make sure that you are still improving. If you find that you are getting worse or develop any new symptoms, please feel free to return to the emergency department for further evaluation. Prescriptions: New prednisone 20 mg tablet 20 mg PO DAILY Qty: 5 0RF azithromycin 250 mg tablet 250 mg PO DAILY 4 Days Qty: 4 0RF Rx Instructions: start on 03/22. First dose given in ER No Action citalopram [Celexa] 10 mg tablet 10 mg PO DAILY citalopram [Celexa] 20 mg tablet 20 mg PO DAILY Rx Instructions: Takes with 10mg tablet daily magnesium oxide [MagOx] 400 mg (241.3 mg magnesium) tablet 400 mg PO DAILY cetirizine [Zyrtec] 10 mg tablet 10 mg PO DAILY PRN (Reason: Allergy Symptoms) multivitamin Tablet 1 tab PO DAILY propranolol 60 mg Capsule,Extended Release 24 Hr 60 mg PO DAILY albuterol sulfate 90 mcg/actuation aero powdr breath act w/sensor 2 inh inhalation Q4-6H PRN (DME) Aerochamber MV Spacer See Rx Instructions .Route Qty: 1 0RF Rx Instructions: As directed fluticasone propion-salmeterol [Advair Diskus] 250-50 mcg/dose blister with device 1 inh inhalation BID Qty: 1 3RF amoxicillin-pot clavulanate [Augmentin] 500-125 mg tablet 1 tab PO BID Qty: 14 0RF Referrals: Deann Castro MD [Primary Care Provider] - Stand Alone Forms: Patient Portal/API
--- NOTE | 2023-03-21 20:30 | DI.RAD.S_ITS ---
PROCEDURE: XR CHEST 1V INDICATIONS: Cough, sepsis. TECHNIQUE: One view of the chest was acquired. COMPARISON: [facility], CR, XR CHEST 2V, 11/27/2022, 13:37. [facility], CR, XR CHEST 2V, 10/10/2021, 13:36. FINDINGS: Surgical changes and devices: None. Lungs and pleura: Bilateral interstitial opacities. No pleural effusion or pneumothorax. Mediastinum: Mediastinal contours appear normal. Heart size is normal. Bones and chest wall: No suspicious bony lesions. Overlying soft tissues appear unremarkable. IMPRESSION: Bilateral interstitial pulmonary opacities could represent sequela of viral or atypical infection. Interstitial edema can appear similarly. Dictated by: Shahid Rodriguez M.D. on 03/21/2023 at 20:52 Approved by: Shahid Rodriguez M.D. on 03/21/2023 at 20:53
[2023-03-21] MEDS: SODIUM CHLORIDE 0.9% 1,000 ML 1000 ML IV (20:44)
[2023-03-21] MEDS: ALBUTEROL 2.5 MG/3 ML NEB (ADULT) INH (20:45)
[2023-03-21] MEDS: cefTRIAXone 2,000 MG in SODIUM CHLORIDE 0.9% 100 ML 200 MG IV (20:54)
[2023-03-21 20:58] LABS: Add Manual Diff / Slide Review NO; Basophils Absolute Auto 0 /uL (0-100); Basophils Percent Auto 0.1 % (0-2); Eosinophils Absolute Auto 0 /uL (0-450); Eosinophils Percent Auto 0.5 % (2-4); Hematocrit 36.3 % (36-46); Hemoglobin 12.2 g/dL (12.0-16.0); Lymphocytes Absolute Auto 600 /uL (1100-4500); Lymphocytes Percent Auto 6.3 % (25-40); Mean Corpuscular HGB Conc 33.6 % (30-36); Mean Corpuscular Hemoglobin 29.7 PG (26-34); Mean Corpuscular Volume 88.5 fL (80-100); Monocytes Absolute Auto 600 /uL (0-900); Monocytes Percent Auto 5.9 % (3-14); Neutrophils Absolute Auto 8800 /uL (1500-7000); Neutrophils Percent Auto 87.2 % (50-75); Platelet Count 272 X10^3/uL (150-400); Red Blood Cell Count 4.11 X10^6/uL (4.0-5.2); White Blood Cell Count 10.1 X10^3/uL (4.5-11.0)
[2023-03-21 21:10] LABS: D Dimer 609 ng/ml (<500)
[2023-03-21 21:13] LABS: Lactate (Lactic Acid) 1.2 mmol/L (0.7-2.1)
[2023-03-21 21:14] LABS: Alanine Aminotransferase 69 IU/L (<35); Albumin 4.2 g/dL (3.5-5.0); Albumin Globulin Ratio 1.2 (1.0-2.8); Alkaline Phosphatase 97 U/L (38-126); Aspartate Aminotransferase 53 IU/L (14-36); BUN Creatinine Ratio 8.6 (6-22); Bilirubin Total 0.5 mg/dL (0.2-1.3); Blood Urea Nitrogen 8 mg/dL (7-17); Calcium 9.4 mg/dL (8.4-10.2); Carbon Dioxide 26 mmol/L (22-32); Chloride 99 mmol/L (98-107); Estimated Glomerular Filt Rate > 60 mL/min (>60); Globulin 3.5 g/dL (1.7-4.1); Glucose 123 mg/dL (80-110); HEMOLYSIS 16 (0-50); Magnesium 1.9 mg/dL (1.6-2.3); Potassium 4.3 mmol/L (3.4-5.1); Sodium 134 mmol/L (137-145); Total Protein 7.7 g/dL (6.3-8.2)
[2023-03-21 21:26] LABS: NT-proBNP (BNP-Adult 18+) 256 pg/mL (<125); Troponin I < 0.012 ng/mL (0.01-0.034)
[2023-03-21 21:30] LABS: Procalcitonin 0.28 ng/mL (<0.5)
[2023-03-21] MEDS: AZITHROMYCIN 500 MG in DEXTROSE 5% IN WATER 250 ML 250 MG IV (21:42)
[2023-03-21 21:46] LABS: Adenovirus Not Detected (Not Detect); B. parapertussis Not Detected (Not Detecte); Bordetella pertussis Not Detected (Not Detect); Chlamydophila pneumoniae Not Detected (Not Detect); Coronavirus 229E Not Detected (Not Detect); Coronavirus HKU1 Not Detected (Not Detect); Coronavirus NL 63 Not Detected (Not Detect); Coronavirus OC43 Not Detected (Not Detect); Human Metapneumovirus Not Detected (Not Detect); Human Rhinovirus/Enterovirus Detected (Not Detect); Influenza A Not Detected (Not Detect); Influenza B Not Detected (Not Detect); Mycoplasma pneumoniae Not Detected (Not Detect); Parainfluenza Virus 1 Not Detected (Not Detect); Parainfluenza Virus 2 Not Detected (Not Detect); Parainfluenza Virus 3 Not Detected (Not Detect); Parainfluenza Virus 4 Not Detected (Not Detect); Respiratory Syncytial Virus Not Detected (Not Detect); SARS- CoV-2 Not Detected (Not Detecte)
[2023-03-21] MEDS: ACETAMINOPHEN 325 MG TABLET PO (21:56)
[2023-03-21] MEDS: IBUPROFEN 400 MG TABLET PO (21:57)
[2023-03-21 23:22] LABS: Appearance Urine UA CLEAR; Bilirubin Urine UA NEGATIVE (NEGATIVE); Color Urine UA YELLOW; Glucose Urine UA NEGATIVE (Negative); Ketones Urine UA TRACE (NEGATIVE); Leukocyte Esterase Urine UA NEGATIVE (NEGATIVE); Nitrite Urine UA NEGATIVE (Negative); Occult Blood Urine UA 1+ (Negative); Protein Urine UA NEGATIVE (Negative); Specific Gravity Urine UA <=1.005 (1.000-1.035); Urobilinogen Urine UA 0.2 E.U./dL (0.2)
[2023-03-21] MEDS: methylPREDNISolone 125 MG/2 ML VIAL IV (23:23)
[2023-03-21 23:37] LABS: Bacteria Urine Occasional (0-1); Culture Indicated Urine Cult Not Indicated; RBC Urine 0-1/HPF (0-5/HPF); Squamous Epithelial Cell Urine 0-1 /HPF (0-5/HPF); WBC Urine None Seen (0-5/HPF)
== END 2023-03-21 23:37 | disposition home or self-care (01) ==
PROVIDERS: Emergency Provider Emergency Medicine; PCP Family Medicine
DX: J18.9 Pneumonia, unspecified organism (principal); B34.8 Other viral infections of unspecified site; Z20.822 Contact with and (suspected) exposure to COVID-19; R03.1 Nonspecific low blood-pressure reading
CPT/HCPCS: 36415; 71045; 80053; 81001; 83605; 83735; 83880; 84145; 84484; 85025; 85379; 87040; 87633; 93005; 93010; 94640; 96365; 96367; 96375; 99284; J0696; J2930; J7613

== ENCOUNTER → 2023-09-27 15:30 | Outpatient (CLI) | payer MEDICARE, OTHER, SELFPAY ==
--- NOTE | 2023-09-27 15:34 | DI.CT.S_ITS ---
PROCEDURE: CT CHEST WO CON INDICATIONS: Solitary pulmonary nodule TECHNIQUE: Noncontrast 5 mm thick sections acquired from the pulmonary apices to the posterior costophrenic angles. 1 mm lung window, 5 mm thick coronal and sagittal and 7 mm axial MIP reformats were then acquired. For radiation dose reduction, the following was used: automated exposure control, adjustment of mA and/or kV according to patient size. COMPARISON: [facility], CT, CT CHEST W CON, 12/28/2022, 10:24. FINDINGS: Image quality: Diagnostic. Lower Neck: No enlarged lymph nodes. Thyroid: No thyroid nodules which require sonographic follow up, per consensus guidelines. Axillae: No enlarged lymph nodes. Chest Wall: Unremarkable. Bones: Unremarkable. Lungs and Pleura: No pneumothorax or pleural effusions. No acute consolidation. 6 mm noncalcified nodule at the right lung apex appears unchanged. Small area of tree-in-bud nodularity again seen in the lateral left upper lobe that has not significantly changed. Bilateral bronchial wall thickening does not appear significantly changed. Assault scattered bilateral pulmonary micro nodules. Heart: Heart size is normal. No pericardial effusion. Mild coronary artery calcifications. Thoracic Vessels: The aorta and pulmonary arteries demonstrate normal size. Mediastinum and [place]: No enlarged lymph nodes. Esophagus: No wall thickening. No hiatal hernia. Upper Abdomen: Stable lateral left hepatic lobe cyst. Visualized upper abdomen solid organs and bowel loops appear normal. IMPRESSION: 1. Right apex 6 mm nodule is stable to minimally decreased in size. No suspicious new pulmonary nodule. Consider follow-up CT in 12 months. 2. Otherwise stable exam. Approved by: Shahid Zheng M.D. on 09/27/2023 at 21:09
== END ==
PROVIDERS: PCP Family Medicine; Referring Provider Family Medicine; Visit Provider Family Medicine
DX: R91.1 Solitary pulmonary nodule (principal); I25.10 Atherosclerotic heart disease of native coronary artery without angina pectoris; K76.89 Other specified diseases of liver
CPT/HCPCS: 71250

== ENCOUNTER → 2023-12-15 08:30 | Outpatient (CLI) | payer MEDICARE, OTHER, SELFPAY ==
--- NOTE | 2023-12-15 | DI.NM.S_ITS ---
PROCEDURE: NM MICHELLE PERF SPECT REST & STR Rest and exercise myocardial perfusion SPECT with gated imaging and ejection fraction RADIOPHARMACEUTICAL: 26.9 mCi Tc-99m sestamibi IV at rest and 25.9 mCi Tc-99m sestamibi IV at peak exercise. A 2 day-protocol was performed. INDICATIONS: Dyspnea PQRS ATTESTATIONS: Measure 322 - Is this imaging test primarily performed on a low-risk surgery patient for preoperative evaluation within 30 days preceding their low-risk non-cardiac surgery? Low-risk surgery is defined as cardiac or myocardial infarction less than 1%, including (but not limited to) endoscopic procedures, superficial procedures, cataract surgery, and excisional breast surgery: Answer: No Measure 323 - Is this imaging test performed primarily for the monitoring of an asymptomatic patient who had percutaneous coronary intervention on the visit date or within 2 years of the visit date? Answer: No Measure 324 - Is this imaging test performed primarily for the initial detection and risk assessment on an asymptomatic, low coronary heart disease patient? Low CHD risk definition = clinicians should consider the maximum number of available patient factors used to estimate risk based on [place] (ATP III criteria), typically age, gender, diabetes, smoking status, and use of blood pressure medication, and integrate age appropriate estimates for missing elements, such as LDL or standard blood pressure. Answer: No TECHNIQUE: Radiopharmaceutical was injected at peak stress test, and also at rest. SPECT images were obtained. SPECT myocardial perfusion images were displayed in short axis, horizontal long axis, and vertical long axis views. Gated images were reviewed using [employer] software. COMPARISON: None. CARDIAC STRESS: A standard Roddy treadmill exercise tolerance test was performed by the patient under the supervision of an attending staff. The patient exercised for 9 minutes and 10 seconds; functional aerobic impairment (MK) is -48%. Hemodynamic data: There is normal blood pressure and heart rate response to exercise stress. Patient achieved 102% of maximum predicted heart rate at peak exercise. Symptoms: Patient denied chest pain during exercise. EKG: No diagnostic EKG changes of ischemia; no ectopy. FINDINGS: Raw data: There is good myocardial labeling by radiotracer. No significant motion artifacts. Mzde-ic-ecfdj ratio is 0.4 (normal is less than 0.38 for sestamibi tracer, and less than 0.50 for thallium tracer). Left ventricle function: Gated images demonstrate normal left ventricle wall thickening. No segmental wall motion abnormality. No transient ischemic dilation; TID is 0.82 (normal less than 1.3). The left ventricle resting end-diastolic volume is 64 mL. Left ventricle stress ejection fraction is 85%; normal values are above 45%. Myocardial perfusion: There is normal distribution of activity in the left and right ventricular myocardium. There was increased gut uptake noted in the rest images with associated hypoperfusion in the inferior segment. No perfusion defects were noted in the stress and prone images. IMPRESSION: 1. Negative exercise myocardial perfusion scan in terms of ischemia or infarction. 2. Above average exercise tolerance. Dictated by: Tyrone Gay M.D. on 12/16/2023 at 17:05 Approved by: Tyrone Gay M.D. on 12/16/2023 at 17:08
== END ==
LOC: NUCM 08:32
PROVIDERS: PCP Family Medicine; Referring Provider Family Medicine; Visit Provider Family Medicine
DX: R06.02 Shortness of breath (principal); R06.09 Other forms of dyspnea
CPT/HCPCS: 78452; 93017; 93306; A9502

== ENCOUNTER → 2024-01-17 13:13 | Outpatient (CLI) | payer MEDICARE, OTHER, SELFPAY ==
--- NOTE | 2024-01-17 13:16 | DI.RAD.S_ITS ---
PROCEDURE: XR SHOULDER LT MIN 2V INDICATIONS: TENDINITIS OF LT ROTATOR CUFF TECHNIQUE: 3 views of the shoulder were acquired. COMPARISON: None. FINDINGS: Bones: No fractures or dislocations. No suspicious bony lesions. Visualized ribs appear intact. Osteoarthritis to the AC joint and glenohumeral joint. Soft tissues: No suspicious soft tissue calcifications. IMPRESSION: 1. No acute bony abnormality. 2. 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 Dictated by: Connor Faye M.D. on 01/17/2024 at 16:58 Approved by: Connor Faye M.D. on 01/17/2024 at 17:01
== END ==
PROVIDERS: PCP Family Medicine; Referring Provider Family Medicine; Visit Provider Family Medicine
DX: M75.82 Other shoulder lesions, left shoulder (principal); M19.012 Primary osteoarthritis, left shoulder
CPT/HCPCS: 73030

== ENCOUNTER → 2024-02-19 10:33 | Outpatient (CLI) | payer MEDICARE, OTHER, SELFPAY ==
--- NOTE | 2024-02-19 10:35 | DI.MRI.S_ITS ---
PROCEDURE: MR SHOULDER LT WO CON INDICATIONS: impingement syndrome of left shoulder TECHNIQUE: Noncontrast oblique coronal T2 fast spin echo with fat saturation, oblique sagittal T1 spin echo and T2 fast spin echo with fat saturation, axial T1 spin echo and T2 fast spin echo with fat saturation through the shoulder. COMPARISON: None. FINDINGS: Image quality: Somewhat limited evaluation given patient motion. Rotator cuff: Limited evaluation of supraspinatus given patient motion. Within this limitation, no high-grade tear of the supraspinatus. The infraspinatus is unremarkable. The teres minor is unremarkable. The subscapularis is intact. Diffuse muscle edema of the supraspinatus. No fatty atrophy of the rotator cuff musculature. Bones and bursae: Moderate degenerative changes acromioclavicular joint. Type 1 acromion. No os acromiale. Mild subacromial/subdeltoid bursitis. No acute fracture. Capsule and soft tissues: Superior labral tear. The extra-articular biceps tendon is unremarkable. The intra-articular biceps tendon is intact. Small glenohumeral effusion. No intra-articular body. IMPRESSION: 1. Moderate degenerative changes of the acromioclavicular joint. 2. Limited evaluation of the supraspinatus given patient motion. Within this limitation, no high-grade tear of the supraspinatus. Diffuse muscle edema of the supraspinatus, nonspecific. 3. Labral tear. Dictated by: Liz Levin M.D. on 02/21/2024 at 10:37 Approved by: Liz Levin M.D. on 02/21/2024 at 10:46
== END ==
LOC: MRI 10:34
PROVIDERS: PCP Family Medicine; Referring Provider Orthopaedic Surgery; Visit Provider Orthopaedic Surgery
DX: M75.42 Impingement syndrome of left shoulder (principal); S43.432A Superior glenoid labrum lesion of left shoulder, initial encounter
CPT/HCPCS: 73221

== ENCOUNTER → 2024-08-29 09:11 | Outpatient (CLI) | payer MEDICARE, OTHER, SELFPAY ==
--- NOTE | 2024-08-29 09:13 | DI.MG.S_ITS ---
MM screening mammo BI: 08/29/2024. BI-RADS: 1 CLINICAL: 68-year old female for bilateral screening mammogram. Tyrer-Cuzick lifetime risk of 5.8%. No personal or first-degree family history of breast cancer. The patient had prior bilateral breast biopsies. PRIOR EXAMS 03/17/2023, 02/27/2022, 02/19/2021, 02/28/2019, 12/31/2017, 10/27/2016, 10/23/2015. MAMMOGRAPHY TECHNIQUE: 2D and 3D (tomosynthesis) digital mammographic views obtained, with additional images as needed for full coverage. Current study was also evaluated with a Computer Aided Detection (CAD) system. DENSITY C. The breasts are heterogeneously dense, which may obscure small masses. MAMMOGRAPHY FINDINGS Bilateral: No suspicious mass, asymmetry, microcalcification, or other abnormality seen. No significant change from comparison. IMPRESSION: * No evidence of malignancy. RECOMMENDATIONS Bilateral * Annual screening mammography. OVERALL ASSESSMENT CATEGORY BI-RADS-1: Negative. The [employer] recommends annual screening mammography beginning at age 40 for women with average risk of breast cancer. ELECTRONICALLY SIGNED: Geena Diaz M.D. on 08/29/2024 at 01:27:27 PM PT Interpreting Station ID: [id number]
== END ==
PROVIDERS: PCP Family Medicine; Referring Provider Family Medicine; Visit Provider Family Medicine
DX: Z12.31 Encounter for screening mammogram for malignant neoplasm of breast (principal); R92.333 Mammographic heterogeneous density, bilateral breasts
CPT/HCPCS: 77063; 77067

== ENCOUNTER → 2024-11-09 10:03 | Outpatient (CLI) | payer OTHER, SELFPAY | LOC: RESP 10:03 | PROVIDERS: PCP Family Medicine; Referring Provider Chiropractor; Visit Provider Chiropractor | DX: J45.909 Unspecified asthma, uncomplicated (principal); J98.8 Other specified respiratory disorders; R94.2 Abnormal results of pulmonary function studies | CPT/HCPCS: 94060 ==

== ENCOUNTER → 2025-03-15 10:58 | Outpatient (CLI) | payer MEDICARE, SELFPAY ==
--- NOTE | 2025-03-15 11:03 | DI.RAD.S_ITS ---
PROCEDURE: XR DEXA AXIAL SKELETON INDICATIONS: osteoporosis screening COMPARISON: [facility], CR, XR DEXA AXIAL SKELETON, 02/28/2019, 14:29. FINDINGS: Lumbar Spine: Bone mineral density 1.010 g/cm2, T score -0.3, decreased by 7%. Left Femoral Neck: Bone mineral density 0.835 g/cm2, T score -0.1. Left Hip: Bone mineral density 1.022 g/cm2, T score 0.7, decreased by 5.5%. Fracture Risk Calculation (when applicable): 10-year fracture risk of a major osteoporotic fracture 7.4 percent and of a hip fracture 0.4 percent. (T score greater or equal to -1.0 to: NORMAL) (T score from -1.1 to -2.4: OSTEOPENIA) (T score less than or equal to -2.5: OSTEOPOROSIS) IMPRESSION: Normal bone mineral density by WHO classification. Follow-up guidelines as follows: Osteoporosis: Consider a repeat DEXA and Vertebral Fracture Assessment (VFA) exam in 2 years or sooner if medically necessary, to reassess this patient's status. Osteopenia: Consider a repeat DEXA in 2-3 years to reassess this patient's status, or if there is a new clinical indication. Normal: Consider a repeat DEXA in 5 years or sooner, or if there is a new clinical indication. All treatment decisions require clinical judgment and consideration of individual patient factors, including patient preferences, comorbidities, previous drug use, risk factors not captured in the FRAX model (e.g., frailty, falls, vitamin D deficiency, increased bone turnover, interval significant decline in bone density ) and possible under- or over-estimation of fracture risk by FRAX. In addition, the NOF Guide recommends that FDA-approved medical therapies be considered in postmenopausal women and men age >= 50 years with a: * Hip or vertebral (clinical or morphometric) fracture * T-score of <=-2.5 at the spine or hip * Ten-year fracture probability by FRAX of >= 3% for hip fracture or >=20% for major osteoporotic fracture. Dictated by: Sean Varela M.D. on 03/16/2025 at 14:51 Approved by: Sean Varela M.D. on 03/16/2025 at 14:52
== END ==
PROVIDERS: PCP Family Medicine; Referring Provider Family Medicine; Visit Provider Family Medicine
DX: Z78.0 Asymptomatic menopausal state (principal); M85.89 Other specified disorders of bone density and structure, multiple sites
CPT/HCPCS: 77080